=== PATIENT | female | born 1930 | race Caucasian/White ===

== ENCOUNTER 2019-04-30 04:02 | Inpatient (IN) ==
[2019-04-30] MEDS ORDERED: ALBUTEROL SULFATE/IPRATROPIUM 3 ML NEBU IH ONE ×2 (04:34→05:54)
[2019-04-30] MEDS ORDERED: NORMAL SALINE 1,000 ML IV PRN (04:34)
[2019-04-30] MEDS ORDERED: ALBUTEROL SULFATE 2.5 MG/0.5 ML VIAL.NEB IH PRN (04:34)
--- NOTE | 2019-04-30 04:50 | ERNOTE ---
Medical Problem HPI - Narrative Date of Service: 04/30/19 - General Chief Complaint: General Assessment Time Seen by Provider: 04/30/19 04:15 Source: patient, RN/MD Exam Limitations: no limitations - Immun/Allergies/Home Medications Immunizations: IMMUNIZATION HX Immunizations Up to Date Yes History of Influenza Vaccine Yes Allergies/Adverse Reactions: Allergies adhesive tape Allergy (Verified 04/30/19 04:20) amlodipine Allergy (Verified 04/30/19 04:20) swelling bacitracin [From Neosporin ([id number])] Allergy (Verified 04/30/19 04:20) bupropion [From Wellbutrin] Allergy (Verified 04/30/19 04:20) rash levofloxacin [From Levaquin] Allergy (Verified 04/30/19 04:20) chest pain lisinopril Allergy (Verified 04/30/19 04:20) cough neomycin [From Neosporin ([id number])] Allergy (Verified 04/30/19 04:20) Penicillins Allergy (Verified 04/30/19 04:20) polymyxin B [From Neosporin ([id number])] Allergy (Verified 04/30/19 04:20) prochlorperazine Allergy (Verified 04/30/19 04:20) Shortness of Breath Sulfa (Sulfonamide Antibiotics) Allergy (Verified 04/30/19 04:20) Home Medications: HOME MEDICATIONS Albuterol Sulfate [Ventolin HFA] 2 puff INHALATION Q6H PRN 04/30/19 [Last Taken Unknown] Albuterol Sulfate/Ipratropium [Duoneb 2.5-0.5MG/3ML Soln] 3 ml INHALATION QID PRN 04/30/19 [Last Taken Unknown] Alprazolam [Xanax] 0.25 mg PO TID PRN 04/30/19 [Last Taken Unknown] Aspirin [Aspir-Low] 81 mg PO DAILY 04/30/19 [Last Taken Unknown] Budesonide/Formoterol Fumarate [Symbicort 160-4.5 Mcg Inhaler] 2 puff INHALATION BID 04/30/19 [Last Taken Unknown] Cholecalciferol (Vitamin D3) [Vitamin D] 2,000 unit PO DAILY 04/30/19 [Last Taken Unknown] Doxycycline Hyclate [Vibratab] 100 mg PO BID 04/30/19 [Last Taken Unknown] Fluticasone Propionate [Flonase] 2 spray NS DAILY 04/30/19 [Last Taken Unknown] Furosemide 20 mg PO DAILY 04/30/19 [Last Taken Unknown] Ipratropium [place] [Ipratropium [place] (Atrovent)] 0.5 mg INHALATION QID PRN 04/30/19 [Last Taken Unknown] Isosorbide Mononitrate [Imdur] 30 mg PO DAILY 04/30/19 [Last Taken Unknown] Levothyroxine Sodium [Synthroid] 25 mcg PO DAILY 04/30/19 [Last Taken Unknown] Loratadine 10 mg PO DAILY 04/30/19 [Last Taken Unknown] Losartan Potassium 100 mg PO DAILY 04/30/19 [Last Taken Unknown] Meclizine HCl 25 mg PO TID PRN 04/30/19 [Last Taken Unknown] Metoprolol Tartrate [Lopressor] 25 mg PO QPM 04/30/19 [Last Taken Unknown] Metoprolol Tartrate [Lopressor] 50 mg PO QAM 04/30/19 [Last Taken Unknown] Montelukast Sodium [Singulair] 10 mg PO DAILY 04/30/19 [Last Taken Unknown] Omeprazole Magnesium [Prilosec Otc] 20 mg PO DAILY 04/30/19 [Last Taken Unknown] Ondansetron [Zofran Odt] 4 mg PO Q6H PRN 04/30/19 [Last Taken Unknown] Polyethylene Glycol 3350 [Miralax] 17 gm PO DAILY PRN 04/30/19 [Last Taken Unknown] Potassium Chloride [Klor-Con 10] 10 meq PO BID 04/30/19 [Last Taken Unknown] Sucralfate [Carafate] 1 gm PO DAILY 04/30/19 [Last Taken Unknown] Terazosin HCl 2 mg PO HS 04/30/19 [Last Taken Unknown] Tiotropium [place] [Spiriva] 2 puff INHALATION DAILY 04/30/19 [Last Taken Unknown] predniSONE [Prednisone] 5 mg PO DAILY 04/30/19 [Last Taken Unknown] - History of Present History Narrative: This patient is an 88-year-old female who is here with pneumonia. She was initially seen in the emergency department at [facility] but was transferred here because they have no beds. She refused to be transferred to [facility]. She has a history of COPD. She is on 1/2 L of oxygen at home. She is on 10 mg of prednisone at home. She has nebulizers at home. She reports that on Tuesday, 4 days ago, she began to develop some chest congestion. She says that she normally sees her doctor and gets antibiotics and and a shot of steroids. She was started on doxycycline but not given increased steroids. Her symptoms worsened. Today, she developed a fever. She continues to have a cough and sometimes produces green sputum. She has had a stuffy head. She denies chest pain. She reportedly was 70% saturated when she was picked up by ambulance [facility]. She did not tolerate and/or refused BiPAP. She was given multiple nebulizer treatments and improved. She had a negative chest x-ray. She had an elevated d-dimer and on the CT scan, there was no blood clot but there was noted to be left lingular and left lower lobe infiltrates. She was started on Rocephin and Zithromax. The patient feels well at this time. She is almost at baseline. Review of Systems - Review of Systems Constitutional: Present: fever, weakness EYE: Absent: blurred vision, double vision ENT: Present: nose congestion, nasal drainage, sore throat. Absent: ear pain Respiratory: Present: shortness of breath, cough, wheezing Cardiology: Absent: chest pain Gastrointestinal/Abdominal: Absent: nausea, vomiting, diarrhea, constipation, abdominal pain Genitourinary: Absent: frequency, pain, dysuria Musculoskeletal: Present: no symptoms reported Skin: Absent: rash Neurological: Present: anxiety. Absent: headache Endocrine: Present: no symptoms reported Hematologic/Lymphatic: Present: other - No active bleeding. Psych: Present: anxiety. Absent: depressed Medical History (Last Updated 04/30/19 @ 04:47 by Dimas Cotto MD) Basal cell carcinoma COPD (chronic obstructive pulmonary disease) Hypertension Surgical History: Surgical History (Last Updated 04/30/19 @ 04:47 by Dimas Cotto MD) H/O: hysterectomy S/P cholecystectomy Social History: (Last Updated 04/30/19 @ 04:48 by Dimas Cotto MD) Tobacco: Smoking Status: Former smoker Physical Exam - Physical Exam General Appearance: Present: wd/wn, alert, no apparent distress Head Exam: Present: normal inspection, no evidence of injury Eye Exam: Normal inspection: bilateral Ears, Nose, Throat: Present: normal ENT inspection, normal pharynx. Absent: abnormal TM (R), abnormal TM (L) Neck: Present: normal inspection, nontender. Absent: lymphadenopathy (R), lymphadenopathy (L) Respiratory: Present: no respiratory distress, no accessory muscle use, decreased breath sounds, wheezing - expiratory Cardiovascular/Chest: Present: regular rate, rhythm, no murmur Gastrointestinal/Abdominal: Present: normal bowel sounds, nontender, nondistended, soft, no organomegaly Back Exam: Present: normal inspection Extremity Exam: Present: normal inspection, non-tender, no edema Neurological Exam: Present: alert, oriented, normal mood/affect Skin Exam: Present: normal color, warm/dry Progress - Date and Time Seen: Date and Time: 04/30/19 04:49 I reviewed the transfer papers. I spoke with Dr. Roland, who agreed to admit the patient. - Vital Signs Patient's Vital Signs:: I have reviewed the patient's vital signs. Vital Signs: Vital Signs 04/30/19 04:03 Temperature 37.1 C Pulse Rate 86 Respiratory Rate 22 H Blood Pressure 151/73 H O2 Sat by Pulse Oximetry 96 - Progress/Reassessment Chief Complaint: General Assessment Departure Clinical Impression: COPD exacerbation, Pneumonia - Departure Disposition: Still a patient Condition: Stable
[2019-04-30] MEDS ORDERED: MECLIZINE HCL 25 MG TABLET PO PRN (08:58)
[2019-04-30] MEDS ORDERED: POLYETHYLENE GLYCOL 3350 17 GM PACKET PO PRN (08:58)
[2019-04-30] MEDS ORDERED: METHYLPREDNISOLONE SOD SUCC/PF 125 MG/2 ML VIAL IV SCH (09:00)
[2019-04-30] MEDS ORDERED: cefTRIAXone SODIUM 1,000 MG/100 ML BAG IV ONE (09:00)
[2019-04-30] MEDS ORDERED: AZITHROMYCIN 250 MG TABLET PO ONE ×2 (09:00→10:30)
[2019-04-30] MEDS: ALBUTEROL SULFATE/IPRATROPIUM 3 ML NEBU IH SCH ×6 (10:10→22:11)
[2019-04-30] MEDS: CHOLECALCIFEROL 1,000 UNIT CAPSULE PO SCH (10:35)
[2019-04-30] MEDS: LORATADINE 10 MG TABLET PO SCH (10:36)
[2019-04-30] MEDS: MONTELUKAST SODIUM 10 MG TABLET PO SCH (10:36)
[2019-04-30] MEDS: POTASSIUM CHLORIDE 10 MEQ TABLET.SA PO SCH ×2 (10:36→20:38)
[2019-04-30] MEDS: predniSONE 20 MG TABLET PO SCH (10:36)
[2019-04-30] MEDS: FUROSEMIDE 20 MG TABLET PO SCH (10:37)
[2019-04-30] MEDS: LOSARTAN POTASSIUM 50 MG TABLET PO SCH (10:37)
[2019-04-30] MEDS: METOPROLOL TARTRATE 50 MG TABLET PO SCH (10:37)
[2019-04-30] MEDS: PANTOPRAZOLE SODIUM 20 MG TABLET.DR PO SCH (10:37)
[2019-04-30] MEDS: LEVOTHYROXINE SODIUM 25 MCG TABLET PO SCH (10:38)
[2019-04-30] MEDS ORDERED: METOPROLOL TARTRATE 25 MG TABLET PO SCH (17:00)
--- NOTE | 2019-04-30 23:43 | HP ---
Chief Complaint - Chief Complaint Date of Service: 04/30/19 Time of Service: 08:15 Chief Complaint: Shortness of breath, cough History of Present Illness: Adali was seen initially at [facility] and diagnosed with COPD exacerbation and pneumonia in the ER. They did not have any available beds for admission and transferred to [facility] ER. Chest Xray and CT were completed at [facility]. CT was performed due to elevated D-dimer. CT showed evidence of pneumonia. Adali has a history of COPD and chronic respiratory failure with hypoxia using 5lpm of oxygen at night. She does not use oxygen during the day. She was seen in clinic this week due to worsening shortness of breath and cough. She was diagnosed with COPD exacerbation and started on doxycycline. She started this but continued to feel more short of breath. She chronically takes 5mg of prednisone daily. Medical History (Last Reviewed 04/30/19 @ 05:24 by Abbi Tse RN) Abnormal mammogram Anxiety reaction Back pain Basal cell carcinoma COPD (chronic obstructive pulmonary disease) Chronic cough Chronic hyponatremia Coronary artery disease Decreased hearing of both ears Dyspnea Epidermal fragility Epistaxis Excessive cerumen in both ear canals Facial flushing Fatigue GERD (gastroesophageal reflux disease) Herpes simplex Hiatal hernia History of left heart catheterization Onset Date: ~09/27/18 Hx of echocardiogram Onset Date: ~12/27/17 Hyperlipidemia Hypertension Hypothyroidism Hypoxemia Melena Osteoporosis Red face Rheumatoid arthritis Tremor, essential Urinary incontinence Urinary urgency Varicose veins of legs Vertigo Vitamin D deficiency Weight gain Surgical History: Surgical History (Last Reviewed 04/30/19 @ 05:24 by Abbi Tse RN) H/O cataract extraction H/O: hysterectomy Hx of cholecystectomy Hx of colonoscopy S/P cholecystectomy Family History: Family History (Last Reviewed 04/30/19 @ 05:24 by Abbi Tse RN) Brother Melanoma Mother Suicide Grandmother Diabetes Colon cancer Father Hypertension Colon cancer Liver cancer Social History: (Last Reviewed 04/30/19 @ 05:25 by Abbi Tse RN) Tobacco: Smoking Status: Former smoker Alcohol: alcohol intake: current alcohol intake frequency: a few times a month Substance Use: substance use type: does not use Review Of Systems (GEN) - Review of Systems Generalized/Overall Review: Present: Weakness. Absent: Chills, Fever EENTM: Present: No Symptoms Reported Respiratory: Present: Cough, Shortness of Breath Cardiac: Absent: Chest Pain, Edema Abdominal: Absent: Nausea, Vomiting Genitourinary: Present: No Symptoms Reported Musculoskeletal: Present: No Symptoms Reported Neurological: Present: No Symptoms Reported Skin: Present: No Symptoms Reported Immunizations: IMMUNIZATION HX Immunizations Up to Date Yes History of Influenza Vaccine Yes Allergies/Adverse Reactions: Allergies Allergy/AdvReac Type Severity Reaction Status Date / Time adhesive tape Allergy Verified 04/30/19 05:25 amlodipine Allergy swelling Verified 04/30/19 05:25 bacitracin Allergy Verified 04/30/19 05:25 [From Neosporin ([id number])] bupropion [From Wellbutrin] Allergy rash Verified 04/30/19 05:25 levofloxacin [From Levaquin] Allergy chest pain Verified 04/30/19 05:25 lisinopril Allergy cough Verified 04/30/19 05:25 neomycin Allergy Verified 04/30/19 05:25 [From Neosporin ([id number])] Penicillins Allergy Verified 04/30/19 05:25 polymyxin B Allergy Verified 04/30/19 05:25 [From Neosporin ([id number])] prochlorperazine Allergy Shortness Verified 04/30/19 05:25 of Breath Sulfa (Sulfonamide Allergy Verified 04/30/19 05:25 Antibiotics) Home Medications: HOME MEDICATIONS Albuterol Sulfate [Ventolin HFA] 2 puff INHALATION Q4H PRN 04/30/19 [Last Taken Unknown] Albuterol Sulfate/Ipratropium [Duoneb 2.5-0.5MG/3ML Soln] 3 ml INHALATION QID PRN 04/30/19 [Last Taken Unknown] Alprazolam [Xanax] 0.25 mg PO TID PRN 04/30/19 [Last Taken Unknown] Budesonide/Formoterol Fumarate [Symbicort 160-4.5 Mcg Inhaler] 2 puff INHALATION BID 04/30/19 [Last Taken Unknown] Cholecalciferol (Vitamin D3) [Vitamin D] 2,000 unit PO DAILY 04/30/19 [Last Ta desean Unknown] Doxycycline Hyclate [Vibratab] 100 mg PO BID 04/30/19 [Last Taken Unknown] Furosemide 20 mg PO DAILY 04/30/19 [Last Taken Unknown] Ipratropium [place] [Ipratropium [place] (Atrovent)] 0.5 mg INHALATION QID PRN 04/30/19 [Last Taken Unknown] Levothyroxine Sodium [Synthroid] 25 mcg PO DAILY 04/30/19 [Last Taken Unknown] Loratadine 10 mg PO DAILY 04/30/19 [Last Taken Unknown] Losartan Potassium 100 mg PO DAILY 04/30/19 [Last Taken Unknown] Meclizine HCl 25 mg PO TID PRN 04/30/19 [Last Taken Unknown] Metoprolol Tartrate [Lopressor] 25 mg PO QPM 04/30/19 [Last Taken Unknown] Metoprolol Tartrate [Lopressor] 50 mg PO QAM 04/30/19 [Last Taken Unknown] Montelukast Sodium [Singulair] 10 mg PO DAILY 04/30/19 [Last Taken Unknown] Omeprazole Magnesium [Prilosec Otc] 20 mg PO DAILY 04/30/19 [Last Taken Unknown] Polyethylene Glycol 3350 [Miralax] 17 gm PO DAILY PRN 04/30/19 [Last Taken Unknown] Potassium Chloride [Klor-Con 10] 10 meq PO BID 04/30/19 [Last Taken Unknown] Tiotropium [place] [Spiriva] 2 puff INHALATION DAILY 04/30/19 [Last Taken Unknown] predniSONE [Prednisone] 5 mg PO DAILY 04/30/19 [Last Taken Unknown] Exam - Exam Vital Signs: Vital Signs - Last Taken Temp 36.6 C 04/30/19 21:14 Pulse 73 04/30/19 22:21 Resp 16 04/30/19 22:21 BP 182/80 H 04/30/19 21:50 Pulse Ox 96 04/30/19 22:11 Constitutional: Present: Alert, Oriented x3, Cooperative ENT Exam: Present: hearing grossly normal Eye Exam: bilateral eye: normal inspection Respiratory: Present: crackles, wheezing Cardiovascular/Chest: Present: regular rate, rhythm, no murmur Peripheral Pulses: radial (R): 2+, radial (L): 2+ Abdomen: Present: Normal bowel sounds, soft, nontender, nondistended Skin Exam: Present: normal color, warm/dry, no cyanosis Appearance: Present: appropriate appearance, appropriate insight Eye contact: Present: cooperative, good eye contact, normal speech Thoughts: Present: normal thought pattern, no apparent hallucination Assessment/Plan - Narrative Narrative: Adali is an 88 yo female that will be admitted for COPD exacerbation and community acquired pneumonia. She has chronic respiratory failure using oxygen at 5lpm at night. She is currently on this continuous but will attempt to wean from oxygen during the day. She is chronically on prednisone 5mg daily so will need to increase this to treatment dose strength for COPD exacerbation at 60mg daily. She was given IV solumedrol in the ER initially. Will treat with azithromycin and rocephin for pneumonia with COPD exacerbation. She has failed outpatient treatment with doxycycline and meets inpatient criteria due to comorbidity of COPD and age. Expect >2 midnights to treat and to monitor for adequate response. - Assessment/Plan (1) COPD exacerbation Problem: Acute (2) Pneumonia Problem: Acute Qualifiers: Pneumonia type: due to unspecified organism Laterality: left Lung location: lower lobe of lung Qualified Code(s): J18.9 - Pneumonia, unspecified organism
[2019-05-01] MEDS: ALBUTEROL SULFATE/IPRATROPIUM 3 ML NEBU IH SCH ×6 (02:43→22:15)
[2019-05-01] MEDS: LOSARTAN POTASSIUM 50 MG TABLET PO SCH ×2 (05:40→08:02)
[2019-05-01] MEDS: LEVOTHYROXINE SODIUM 25 MCG TABLET PO SCH (07:49)
[2019-05-01] MEDS: ALPRAZolam 0.25 MG TABLET PO PRN (08:00)
[2019-05-01] MEDS: LORATADINE 10 MG TABLET PO SCH (08:01)
[2019-05-01] MEDS: POTASSIUM CHLORIDE 10 MEQ TABLET.SA PO SCH ×2 (08:01→21:56)
[2019-05-01] MEDS: FUROSEMIDE 20 MG TABLET PO SCH (08:02)
[2019-05-01] MEDS: METOPROLOL TARTRATE 50 MG TABLET PO SCH (08:03)
[2019-05-01] MEDS: predniSONE 20 MG TABLET PO SCH (08:04)
[2019-05-01] MEDS: CHOLECALCIFEROL 1,000 UNIT CAPSULE PO SCH (08:05)
[2019-05-01] MEDS: AZITHROMYCIN 250 MG TABLET PO SCH (08:05)
[2019-05-01] MEDS: MONTELUKAST SODIUM 10 MG TABLET PO SCH (08:06)
[2019-05-01] MEDS: PANTOPRAZOLE SODIUM 20 MG TABLET.DR PO SCH (08:06)
[2019-05-01 08:17] LABS: Hematocrit 38.5 % (37.0-47.0); Hemoglobin 12.5 gm/dL (12.5-16.0); Mean Cell Volume 92.3 fl (78-100); Mean Corpuscular Hgb Conc 32.5 g/dl (32-36); Mean Platelet Volume 8.8 fl (8-12.5); Neutrophil # 12.3 K/mm3 (1.3-6.0); Neutrophil % 88.6 % (42-75.0); Platelet Count 282 K/mm3 (150-450); Red Blood Count 4.17 M/mm3 (4.2-5.4); Red Cell Distribution Width 13.5 % (11.5-14.0); White Blood Count 13.9 K/mm3 (4.0-10.5)
[2019-05-01 08:29] LABS: Albumin * 3.2 gm/dl (3.4-5.0); BUN/Creatinine Ratio 12.5 (9.0-21.6); Bilirubin, Total 0.2 mg/dL (0.0-1.1); Ca. Corrected For Albumin 9.4 mg/dL (8.4-10.2); Calcium * 9.1 mg/dL (7.9-10.9); Carbon Dioxide 26.8 mmol/L (24-32.6); Potassium 3.8 mmol/L (3.4-4.6)
[2019-05-01] MEDS: METOPROLOL TARTRATE 25 MG TABLET PO SCH (21:56)
--- NOTE | 2019-05-01 23:54 | PN ---
Subjective - Date and Time Seen Date: 05/01/19 Time: 09:00 Subjective Narrative: Continues to feel short of breath with activity. Not coughing much up. No fever, chills, nausea, or vomiting. Objective - Vitals Vitals: Last Vital Signs Temp 36.3 C 05/01/19 22:03 Pulse 74 05/01/19 22:15 Resp 20 05/01/19 22:15 BP 156/86 H 05/01/19 22:03 Pulse Ox 96 05/01/19 22:15 - Abnormal Lab Findings Abnormal Lab Findings: Abnormal Lab Results 05/01/19 05/01/19 Range/Units 08:10 08:10 WBC 13.9 H (4.0-10.5) K/mm3 RBC 4.17 L (4.2-5.4) M/mm3 Immature Gran # (Auto) 0.06 H (0.000-0.0310) K/mm3 Neutrophils % 88.6 H (42-75.0) % Lymphocytes % 6.1 L (20-51) % Neutrophils # 12.3 H (1.3-6.0) K/mm3 Lymphocytes # 0.84 L (1.5-3.5) k/mm3 Chloride 96 L (97-106) mmol/L Anion Gap 15.0 H (6.8-13.8) mmol/L Est GFR (Non-Af Amer) 49 L (60-130) mL/min Random Glucose 169 H (70-110) mg/dL Albumin 3.2 L (3.4-5.0) gm/dl - Exam Constitutional: Present: Alert, Oriented x3, Cooperative ENT Exam: Present: hearing grossly normal Respiratory: Present: decreased breath sounds, wheezing Cardiovascular/Chest: Present: regular rate, rhythm, no murmur Abdomen: Present: Normal bowel sounds, soft, nontender, nondistended, no rebound tenderness Skin Exam: Present: normal color, warm/dry, no cyanosis Assessment/Plan Plan Narrative: A little improved. Continue to treat pneumonia with azithromycin, rocephin, prednisone, and nebulizers. Also treating COPD exacerbation with prednisone, nebs, azith. May be able to discharge to home if continues to improve. - Problems/Diagnosis (1) COPD exacerbation Problem: Acute (2) Pneumonia Problem: Acute Qualifiers: Pneumonia type: due to unspecified organism Laterality: left Lung location: lower lobe of lung Qualified Code(s): J18.9 - Pneumonia, unspecified organism
[2019-05-02] MEDS: ALBUTEROL SULFATE/IPRATROPIUM 3 ML NEBU IH SCH ×6 (02:14→22:45)
[2019-05-02] MEDS: LEVOTHYROXINE SODIUM 25 MCG TABLET PO SCH (06:29)
[2019-05-02] MEDS: LORATADINE 10 MG TABLET PO SCH (09:13)
[2019-05-02] MEDS: LOSARTAN POTASSIUM 50 MG TABLET PO SCH (09:13)
[2019-05-02] MEDS: FUROSEMIDE 20 MG TABLET PO SCH (09:14)
[2019-05-02] MEDS: POTASSIUM CHLORIDE 10 MEQ TABLET.SA PO SCH ×2 (09:14→22:01)
[2019-05-02] MEDS: PANTOPRAZOLE SODIUM 20 MG TABLET.DR PO SCH (09:14)
[2019-05-02] MEDS: predniSONE 20 MG TABLET PO SCH (09:14)
[2019-05-02] MEDS: METOPROLOL TARTRATE 50 MG TABLET PO SCH (09:14)
[2019-05-02] MEDS: MONTELUKAST SODIUM 10 MG TABLET PO SCH (09:15)
[2019-05-02] MEDS: AZITHROMYCIN 250 MG TABLET PO SCH (09:15)
[2019-05-02] MEDS: CHOLECALCIFEROL 1,000 UNIT CAPSULE PO SCH (09:15)
[2019-05-02] MEDS: ALPRAZolam 0.25 MG TABLET PO PRN ×2 (11:23→16:50)
--- NOTE | 2019-05-02 12:10 | PN ---
Subjective - Date and Time Seen Date: 05/02/19 Time: 12:10 Subjective Narrative: Adali reports breathing a little better. She is coughing up phlegm now with cornet. No fever, chills, nausea, or vomiting. Objective - Vitals Vitals: Last Vital Signs Temp 36.6 C 05/02/19 07:00 Pulse 82 05/02/19 11:03 Resp 21 H 05/02/19 11:03 BP 129/72 05/02/19 09:14 Pulse Ox 96 05/02/19 10:53 - Exam Constitutional: Present: Alert, Oriented x3, Cooperative ENT Exam: Present: hearing grossly normal Respiratory: Present: wheezing Cardiovascular/Chest: Present: regular rate, rhythm, no murmur Abdomen: Present: Normal bowel sounds, soft, nontender, nondistended Appearance: Present: appropriate appearance, appropriate insight Eye contact: Present: cooperative, good eye contact, normal speech Thoughts: Present: normal thought pattern, no apparent hallucination Assessment/Plan Plan Narrative: Gradually improving. Having productive sputum. Using cornet. Lungs have more air movement. Continue antibiotics, nebs, steroids. Anticipate discharge to home tomorrow. - Problems/Diagnosis (1) COPD exacerbation Problem: Acute (2) Pneumonia Problem: Acute Qualifiers: Pneumonia type: due to unspecified organism Laterality: left Lung location: lower lobe of lung Qualified Code(s): J18.9 - Pneumonia, unspecified organism
[2019-05-02] MEDS: METOPROLOL TARTRATE 25 MG TABLET PO SCH (22:01)
[2019-05-03] MEDS: ALBUTEROL SULFATE/IPRATROPIUM 3 ML NEBU IH SCH ×3 (02:29→11:33)
[2019-05-03] MEDS: LEVOTHYROXINE SODIUM 25 MCG TABLET PO SCH (07:08)
[2019-05-03] MEDS: ALPRAZolam 0.25 MG TABLET PO PRN ×2 (07:10→12:46)
[2019-05-03] MEDS: METOPROLOL TARTRATE 50 MG TABLET PO SCH ×2 (07:18→09:00)
[2019-05-03] MEDS: LOSARTAN POTASSIUM 50 MG TABLET PO SCH ×2 (07:19→08:59)
[2019-05-03] MEDS: FUROSEMIDE 20 MG TABLET PO SCH ×2 (07:20→09:00)
[2019-05-03] MEDS: AZITHROMYCIN 250 MG TABLET PO SCH (08:55)
[2019-05-03] MEDS: POTASSIUM CHLORIDE 10 MEQ TABLET.SA PO SCH (08:56)
[2019-05-03] MEDS: LORATADINE 10 MG TABLET PO SCH (08:56)
[2019-05-03] MEDS: predniSONE 20 MG TABLET PO SCH (08:56)
[2019-05-03] MEDS: PANTOPRAZOLE SODIUM 20 MG TABLET.DR PO SCH (08:57)
[2019-05-03] MEDS: CHOLECALCIFEROL 1,000 UNIT CAPSULE PO SCH (08:58)
[2019-05-03] MEDS: MONTELUKAST SODIUM 10 MG TABLET PO SCH (08:58)
--- NOTE | 2019-05-03 12:52 | DS ---
(1) Pneumonia Problem: Acute Qualifiers: Pneumonia type: due to unspecified organism Laterality: left Lung location: lower lobe of lung Qualified Code(s): J18.9 - Pneumonia, unspecified organism (2) COPD exacerbation Problem: Acute Date of Discharge:: 05/03/19 Hospital Course: Adali is an 88 yo female with COPD that was admitted for COPD exacerbation secondary to pneumonia. She was initially seen at [facility], but when needing to be admitted did not have any available beds at [facility]. She was transferred to [facility] ER and was admitted. She had failed outpatient treatment on doxycycline. She is also chronically on 5mg of prednisone for COPD. She was admitted and increased to 60mg of prednisone daily, azithromycin, and rocephin. She was given cornet and incentive spirometer. She was given nebulizer treatment and gradually improved. Today she is feeling well enough for home discharge. Will continue antibiotics for another week and higher dose of steroids and then wean back to baseline dose. She had elevated blood pressure that fluctuated during her stay. It was normal at times and slightly elevated a majority of time, occasionally it was significantly elevated. I suspect the elevation to be secondary to illness and will have her follow up with her primary care physician to monitor this once she is feeling well again. Procedures Performed: none Results and Findings: Lab Pending Results 05/01/19 08:10: WBC 13.9 H, RBC 4.17 L, Hgb 12.5, Hct 38.5, MCV 92.3, MCH 30.0, MCHC 32.5, RDW 13.5, Plt Count 282, MPV 8.8, Immature Gran % (Auto) 0.40, Immature Gran # (Auto) 0.06 H, Neutrophils % 88.6 H, Lymphocytes % 6.1 L, Monocytes % 4.8, Eosinophils % 0.0, Basophils % 0.1, Nucleated RBC % 0.0, Neutrophils # 12.3 H, Lymphocytes # 0.84 L, Monocytes # 0.7, Eosinophils # 0.0, Absolute Basophils 0.0 05/01/19 08:10: Sodium 134, Plasma Sodium 135, Potassium 3.8, Chloride 96 L, Carbon Dioxide 26.8, Anion Gap 15.0 H, BUN 14, Creatinine 1.12, Est GFR (Non-Af Amer) 49 L, BUN/Creatinine Ratio 12.5, Random Glucose 169 H, Calcium 9.1, Calcium Adj for Albumin 9.4, Total Bilirubin 0.2, AST 18, ALT 32, Alkaline Phosphatase 101, Total Protein 7.0, Albumin 3.2 L Discharge Location: Home Disposition: Home self-care Condition: Good Discharge Activity: Activity as tolerated Discharge Diet: Low salt Referrals: JAIME LEWIS [Primary Care Provider] - One Week () Problem Oriented Discharge Instructions to Patient/Family: Chronic Obstructive Pulmonary Disease Exacerbation, [id number], Community-Acquired Pneumonia, Adult, Vumi-[id number] Additional Patient Instructions (free text): Rescheduled Dr Navarro office appointment on Tuesday at 9:30am. Prescriptions (Any new or edited meds): Cefdinir [Omnicef] 300 mg PO Q12H #20 cap Transmission Status: Pending to [place], [place] predniSONE [Prednisone] 40 mg PO DAILY #25 tab Transmission Status: Sent to [place], [place] Azithromycin [Zithromax] 250 mg PO DAILY #2 tab Transmission Status: Pending to [place], [place] Complete Home Medications List: Complete Home Medication List: Albuterol Sulfate [Ventolin HFA] 2 puff INHALATION Q4H PRN 04/30/19 Albuterol Sulfate/Ipratropium [Duoneb 2.5-0.5MG/3ML Soln] 3 ml INHALATION QID PRN 04/30/19 Alprazolam [Xanax] 0.25 mg PO TID PRN 04/30/19 Budesonide/Formoterol Fumarate [Symbicort 160-4.5 Mcg Inhaler] 2 puff INHALATION BID 04/30/19 Cholecalciferol (Vitamin D3) [Vitamin D3] 2,000 unit PO DAILY 04/30/19 Doxycycline Hyclate [Vibratab] 100 mg PO BID 04/30/19 Furosemide 20 mg PO DAILY 04/30/19 Ipratropium [place] [Atrovent] 0.5 mg INHALATION QID PRN 04/30/19 Levothyroxine Sodium [Synthroid] 25 mcg PO DAILY 04/30/19 Loratadine 10 mg PO DAILY 04/30/19 Losartan Potassium 100 mg PO DAILY 04/30/19 Meclizine HCl 25 mg PO TID PRN 04/30/19 Metoprolol Tartrate [Lopressor] 25 mg PO QPM 04/30/19 Metoprolol Tartrate [Lopressor] 50 mg PO QAM 04/30/19 Montelukast Sodium [Singulair] 10 mg PO DAILY 04/30/19 Omeprazole Magnesium [Prilosec Otc] 20 mg PO DAILY 04/30/19 Polyethylene Glycol 3350 [Miralax] 17 gm PO DAILY PRN 04/30/19 Potassium Chloride [Klor-Con 10] 10 meq PO BID 04/30/19 Tiotropium [place] [Spiriva] 2 puff INHALATION DAILY 04/30/19 predniSONE [Prednisone] 5 mg PO DAILY 04/30/19 Azithromycin [Zithromax] 250 mg PO DAILY #2 tab 05/03/19 Azithromycin [Zithromax] 250 mg PO DAILY #2 tab 05/03/19 Cefdinir [Omnicef] 300 mg PO Q12H #20 cap 05/03/19 predniSONE [Prednisone] 40 mg PO DAILY #25 tab 05/03/19
[2019-05-03 14:15] VITALS: BP 157/72
== END 2019-05-03 14:16 | disposition home or self-care (01) | DRG 190 ==
LOC: ER 04:02 → MS 04:47
PROVIDERS: ADMIT Family Medicine; ATTEND Family Medicine
CPT/HCPCS: 36415; 80053; 85025; 94640; 94664; 99284; 99285